=== PATIENT | female | born 1955 | race Caucasian/White ===

== ENCOUNTER 2018-03-10 11:02 | Day surgery (SDC) | payer BC ==
[~2018-03-10] VITALS: Ht 172.7 cm; Wt 85.7 kg
[2018-03-10] MEDS ORDERED: LACTATED RINGERS 1,000 ML IV SCH (11:24)
[2018-03-10] MEDS ORDERED: BACITRACIN OINT 500U/GM, 15 GM ONE (11:56)
[2018-03-10] MEDS ORDERED: EPINEPHRINE TOPICAL SOLN 1 MG/ML, 30ML ONE (11:56)
[2018-03-10] MEDS ORDERED: OXYMETAZOLINE NASAL SPRAY 0.05%, 15ML ONE (11:56)
[2018-03-10] MEDS ORDERED: FLUORESCEIN SODIUM 500 MG/5 ML ONE (11:56)
[2018-03-10] MEDS ORDERED: LIDOCAINE 1%-EPI 1:100K, 30ML ONE (11:56)
[2018-03-10 11:57] VITALS: BP_SYST 84
[2018-03-10] MEDS ORDERED: PLEASE ENTER HEIGHT AND WEIGHT MC SCH (12:00)
[2018-03-10] MEDS ORDERED: POTASIUM PO (12:16)
[2018-03-10] MEDS ORDERED: PROBIOTIC PO (12:16)
[2018-03-10] MEDS ORDERED: ATORVASTATIN PO (12:16)
[2018-03-10] MEDS ORDERED: [UNRECOGNIZED DRUG - OTHER] PO (12:16)
[2018-03-10] MEDS ORDERED: VIT D PO (12:16)
[2018-03-10] MEDS ORDERED: PROPOFOL 10 MG/ML, 20ML ONE (12:17)
[2018-03-10] MEDS ORDERED: ONDANSETRON 2MG/ML, 2ML ONE (12:17)
[2018-03-10] MEDS ORDERED: METOCLOPRAMIDE 5 MG/ML, 2ML ONE (12:17)
[2018-03-10] MEDS ORDERED: DEXAMETHASONE 4 MG/ML, 1ML ONE (12:17)
[2018-03-10] MEDS ORDERED: EPHEDRINE 50 MG/ML, 1ML ONE (12:17)
[2018-03-10] MEDS ORDERED: CEFAZOLIN 1,000 MG ONE (12:17)
[2018-03-10] MEDS ORDERED: FENTANYL PF 100 MCG/2ML ONE (12:28)
[2018-03-10] MEDS ORDERED: HYDROmorphone 1 MG/ML, 1ML IV PRN (13:00)
[2018-03-10] MEDS ORDERED: ONDANSETRON 2MG/ML, 2ML IV PRN (13:00)
[2018-03-10] MEDS ORDERED: LABETALOL 5MG/ML, 20ML IV PRN (13:00)
[2018-03-10] MEDS ORDERED: ACETAMINOPHEN 325 MG TABLET PO PRN (13:00)
[2018-03-10] MEDS ORDERED: FENTANYL PF 100 MCG/2ML IV PRN (13:00)
[2018-03-10] MEDS ORDERED: hydrALAzine 20 MG/ML, 1ML IV PRN (13:00)
[2018-03-10] MEDS ORDERED: OXYcodone 5 MG/5 ML ORAL.SOL UDC PO PRN (13:00)
== END 2018-03-10 14:55 | disposition home or self-care (01) ==
LOC: OUT 11:02
PROVIDERS: ATTEND Otolaryngology
DX: D14.0 Benign neoplasm of middle ear, nasal cavity and accessory sinuses (principal); Z90.710 Acquired absence of both cervix and uterus; Z98.890 Other specified postprocedural states; I10 Essential (primary) hypertension
CPT/HCPCS: 31237; 88305; 88331; 93005; J0690; J1100; J2405; J2704; J2765; J3010; J3490; J7120

== ENCOUNTER 2019-03-01 07:58 | Outpatient (CLI) | payer OTHER ==
[~2019-03-01 07:58] MED LIST: ATORVASTATIN PO; POTASIUM PO; PROBIOTIC PO; VIT D PO; [UNRECOGNIZED DRUG - OTHER] PO
== END 2019-03-01 23:59 | disposition home or self-care (01) ==
LOC: CFH 07:58
PROVIDERS: ATTEND Family Medicine
DX: E78.00 Pure hypercholesterolemia, unspecified (principal)
CPT/HCPCS: 75571